=== PATIENT | female | born 1980 | race Two or more races ===

== ENCOUNTER 2018-03-26 06:15 | Emergency (ER) | payer SELFPAY ==
--- NOTE | 2018-03-26 06:33 | ED Physician Documentation ---
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 Denies pain, denies cough, denies palpitations. Denies h/o similar symptoms. Symptoms have nearly resolved prior to evaluation. Review of Systems Constitutional: denies: Fever, Chills, Sweats Cardiac: reports: Reviewed and negative Respiratory: reports: Dyspnea. 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 - Present Medications Home Medications: Ambulatory Orders Medication Instructions Recorded Confirmed Albuterol Sulf [Ventolin Hfa 1 - 2 puffs INH Q4HR PRN #1 inhaler 03/26/18 Inhaler] - Social History Does the pt smoke?: No Smoking Status: Never smoker Does the pt drink ETOH?: No Does the pt have substance abuse?: No - Immunizations Immunizations are current?: Yes PD ED PE NORMAL - Vitals Vital signs reviewed: Yes - General General: Alert and oriented X 3, No acute distress, Well developed/nourished - Neck Neck: Supple, no meningeal sign - Cardiac Cardiac: RRR, No murmur, No gallop, No rub - Respiratory Respiratory: No respiratory distress, Clear bilaterally - Abdomen Abdomen: Soft, Non tender - Derm Derm: Normal color, Warm and dry - Extremities Extremities: No edema Results - Vitals Vitals: Oxygen O2 Source Room air - EKG (time done) No standard instances Rate: Rate (enter#) (73) Rhythm: NSR [place]: Normal Intervals: Normal SD QRS: Normal Ischemia: Normal ST segments - Rads (name of study) chest xray Radiology: Prelim report reviewed, See rad report PD MEDICAL DECISION MAKING - ED course Complexity details: reviewed results, re-evaluated patient, considered differential, d/w patient, d/w family ED course: on reevaluation, patient is in NAD and reports resolution of symptoms - Sepsis Event Vital Signs: Oxygen O2 Source Room air Departure - Departure Disposition: 01 Home, Self Care Clinical Impression: Bronchitis Condition: Good Instructions: ED Upper Resp Infec No Abx Tx Prescriptions: Albuterol Sulf [Ventolin Hfa Inhaler] 1 - 2 puffs INH Q4HR PRN #1 inhaler PRN Reason: Shortness Of Air/Wheezing Print Language: Samoan Discharge Date/Time: 03/26/18 07:50
--- NOTE | 2018-03-26 07:26 | XRAY Report ---
Reason: SOA Procedure Date: 03/26/2018 Accession Number: [id number] / [id number] Procedure: XR - Chest 2 View X-Ray CPT Code: 45687 FULL RESULT: EXAM: CHEST RADIOGRAPHY EXAM DATE: 03/26/2018 07:10 AM. CLINICAL HISTORY: Shortness of breath COMPARISON: None. TECHNIQUE: 2 views. FINDINGS: Lungs/Pleura: Bilateral central bronchial wall thickening could reflect underlying reactive airways or bronchitis. No focal airspace consolidation seen. No evidence for pleural effusion or pneumothorax. Mediastinum: Heart and mediastinal contours are unremarkable. Other: None. IMPRESSION: 1. Bilateral central bronchial wall thickening could reflect underlying reactive airways or bronchitis. No evidence for superimposed pneumonia. RADIA
[2018-03-26 07:53] VITALS: BP 113/78
== END 2018-03-26 07:50 | disposition home or self-care (01) ==
LOC: ED 06:15
DX: J40 Bronchitis, not specified as acute or chronic (principal)
CPT/HCPCS: 71046; 93005; 99283

== ENCOUNTER 2019-09-17 16:04 | Emergency (ER) | payer SELFPAY ==
[2019-09-17 16:15] VITALS: BP 152/82
--- NOTE | 2019-09-17 16:22 | ED Physician Documentation ---
PD HPI FOCAL NEURO - Stated complaint Stated Complaint: RT SIDE FACIAL NUMBNESS - Chief complaint Chief Complaint: Neuro - History obtained from History obtained from: Patient, Family, Other (she declined medical ticket counter, wanted to use family.) - History of Present Illness Timing - onset: Today Timing - details: Gradual onset (Facial droop and numbness on the right today without any weakness numbness or tingling in the arms or legs. No headache. She is never had this before. 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 - Present Medications Home Medications: Ambulatory Orders Medication Instructions Recorded Confirmed Acyclovir 800 mg PO 5XD #50 tablet 09/17/19 predniSONE [Deltasone] 20 mg PO [id number] #21 tab 09/17/19 - Allergies Allergies/Adverse Reactions: Allergies Allergy/AdvReac Type Severity Reaction Status Date / Time No Known Drug Allergies Allergy Verified 09/17/19 16:16 - Social History Does the pt smoke?: No Smoking Status: Never smoker Does the pt drink ETOH?: No Does the pt have substance abuse?: No - Immunizations Immunizations are current?: Yes PD ED PE NORMAL - Vitals Vital signs reviewed: Yes - General General: Alert and oriented X 3, No acute distress - HEENT HEENT: PERRL, Other (She has a classic Enamorado's palsy, 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 Extraocular movements are normal. No lesions near the nose lips or in the ear. TM on the right is normal. Tongue is straight and palatal rise is even.) - Neck Neck: Supple, no meningeal sign, No bony TTP - Cardiac Cardiac: RRR, No murmur - Respiratory Respiratory: No respiratory distress, Clear bilaterally - Abdomen Abdomen: Non tender - Extremities Extremities: No edema, No calf tenderness / cord - Neuro Neuro: Alert and oriented X 3, No motor deficit, No sensory deficit, Other (Equal bilateral plater hot dip strength, no pronator drift in the arms or legs. 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 Departure - Departure Disposition: 01 Home, Self Care Clinical Impression: Enamorado's palsy Condition: Good Record reviewed to determine appropriate education?: Yes Instructions: ED Dana Palsy Prescriptions: Acyclovir 800 mg PO 5XD #50 tablet predniSONE [Deltasone] 20 mg PO [id number] #21 tab Print Language: Welsh Comments: Tienes landen condicin conocida mehrdad parlisis de Enamorado. Loami no es peligroso y generalmente desaparece por s solo. Los medicamentos esteroides y antivirales deberan ayudar. Regrese si empeora o si se desarrollan nuevos sntomas. Brandt un seguimiento con lew mdico a fines de esta semana para verificar nuevamente. Lew presin arterial se elev hoy al registrarse en el departamento de emergencias. Loami no significa que tenga hipertensin, es un fenmeno comn acudir al departamento de emergencias y tener presin arterial elevada. Le recomiendo que consulte a lew mdico de atencin primaria dentro de la semana para que lo revisen nuevamente cuando se sienta mejor.
[2019-09-17] MEDS ORDERED: ACYCLOVIR 200 MG CAPSULE PO STA (16:23)
[2019-09-17] MEDS ORDERED: predniSONE 20 MG TABLET PO STA (16:23)
== END 2019-09-17 16:35 | disposition home or self-care (01) ==
LOC: ED 16:04
DX: G51.0 Bell's palsy (principal)
CPT/HCPCS: 99282; 99283; A9270; J7512

== ENCOUNTER 2021-12-12 08:00 | Outpatient (CLI) | payer SELFPAY ==
--- NOTE | 2021-12-12 14:15 | XRAY Report ---
PROCEDURE: Chest 2 View X-Ray INDICATIONS: COUGH TECHNIQUE: 2 view(s) of the chest. COMPARISON: November 24, 2017. FINDINGS: SUPPORT DEVICES: None. LUNGS/PLEURA: Faint density in the right lower lung zone, concerning for a prominent vessel versus de veloping pneumonic infiltrate. No pleural effusion or space-occupying pneumothorax. MEDIASTINUM: The cardiomediastinal silhouette is within normal limits. BONES/SOFT TISSUES: No acute abnormality. IMPRESSION: 1.Faint density in the right lower lung zone, concerning for a prominent vessel versus developing pne umonic infiltrate. Reviewed by: Del Donahue MD on 12/12/2021 2:14 PM PDT Approved by: Del Donahue MD on 12/12/2021 2:14 PM PDT Station ID: [id number]
== END 2021-12-12 23:59 | disposition home or self-care (01) ==
LOC: DI.S 08:00
PROVIDERS: ATTEND Physician Assistant Medical
DX: R91.8 Other nonspecific abnormal finding of lung field (principal); R05.9 Cough, unspecified; Z20.822 Contact with and (suspected) exposure to COVID-19